=== PATIENT | male | born 1960 | race Caucasian/White ===

== ENCOUNTER → 2016-10-26 | Outpatient (CLI) | payer BC ==
--- NOTE | 2016-10-26 11:27 | ECHOS ---
Referral Reason:R06.09 other forms of dyspnea MEASUREMENTS -------- HEIGHT: 167.6 cm WEIGHT: 93.0 kg BP: 111/52 WallScoring: string WallScoring: string FINDINGS -------- Utilizing the standard Daljit protocol the patient was exercised for 8:00 minutes, 0 seconds, achieving a maximum heart rate of 154 , which is 93 % of predicted maximal heart rate. There was physiologic heart rate and blood pressure response to exercise. Max Heart Rate: 154 % of Max Predicted Heart Rate: 93 Rest Heart Rate: 93 Rest BP: 111/52 Max BP: 162/49 Mets Achieved: 9.7 The test was stopped because the target heart rate was achieved. This level of exercise represents an average exercise tolerance for age. The underlying rhythm is normal sinus rhythm with an average heart rate of with a Right Bundle Branch Block. In response to stress, the ECG showed no ST-T wave changes (see exercise report for details). In response to stress, the ECG showed no ST-T wave changes (see exercise report for details). There were normal blood pressure and heart rate responses to stress. LV size, wall thickness and systolic function are normal, with an EF of 60%. Echo images were acquired at peak stress which demonstrated appropriate augmentation of all left ventricular segments. CONCLUSIONS -------- 1. This level of exercise represents an average exercise tolerance for age. 2. In response to stress, the ECG showed no ST-T wave changes (see exercise report for details). 3. In response to stress, the ECG showed no ST-T wave changes (see exercise report for details). 4. There were normal blood pressure and heart rate responses to stress. 5. LV size, wall thickness and systolic function are normal, with an EF of 60%. 6. Echo images were acquired at peak stress which demonstrated appropriate augmentation of all left ventricular segments. 7. No 2D echocardiographic evidence of inducible ischemia to achieved workload. 8. XXX functional exercise capacity. No ECG or 2D echocardiographic evidence of inducible ischemia to achieved workload. EXECUTIVE ADMINISTRATOR: Erum Garcia, JAMIE
--- NOTE | 2016-10-26 11:36 | EST ---
Referral Reason:R06.09 other forms of dyspnea MEASUREMENTS -------- HEIGHT: 167.6 cm WEIGHT: 93.0 kg BP: 111/52 FINDINGS -------- Utilizing the standard Daljit protocol the patient was exercised for 8:00 minutes, 0 seconds, achieving a maximum heart rate of 154 , which is 93 % of predicted maximal heart rate. There was physiologic heart rate and blood pressure response to exercise. Max Heart Rate: 154 % of Max Predicted Heart Rate: 93 Rest Heart Rate: 93 Rest BP: 111/52 Max BP: 162/49 Mets Achieved: 9.7 The test was stopped because the target heart rate was achieved. This level of exercise represents an average exercise tolerance for age. The underlying rhythm is normal sinus rhythm with an average heart rate of with a Right Bundle Branch Block. In response to stress, the ECG showed no ST-T wave changes (see exercise report for details). In response to stress, the ECG showed no ST-T wave changes (see exercise report for details). There were normal blood pressure and heart rate responses to stress. LV size, wall thickness and systolic function are normal, with an EF of 60%. Echo images were acquired at peak stress which demonstrated appropriate augmentation of all left ventricular segments. CONCLUSIONS -------- 1. This level of exercise represents an average exercise tolerance for age. 2. In response to stress, the ECG showed no ST-T wave changes (see exercise report for details). 3. In response to stress, the ECG showed no ST-T wave changes (see exercise report for details). 4. There were normal blood pressure and heart rate responses to stress. 5. LV size, wall thickness and systolic function are normal, with an EF of 60%. 6. Echo images were acquired at peak stress which demonstrated appropriate augmentation of all left ventricular segments. 7. No 2D echocardiographic evidence of inducible ischemia to achieved workload. 8. XXX functional exercise capacity. No ECG or 2D echocardiographic evidence of inducible ischemia to achieved workload. INSPECTOR MOTOR VEHICLES: Erum Garcia RDCS MTDD
== END | disposition home or self-care (01) ==
LOC: RADNMMAIN 09:50
PROVIDERS: ATTEND Family Medicine
DX: R06.09 Other forms of dyspnea (principal)
CPT/HCPCS: 93350; 93017; Q9957